=== PATIENT | male | born 1970 | race Hispanic/Latino ===

== ENCOUNTER 2024-09-01 12:10 | Emergency (ER) | payer OTHER ==
[~2024-09-01] VITALS: Ht 165.1 cm; Wt 54.4 kg
[2024-09-01 13:00] VITALS: PULSE 77; RESP 18; TEMP 98.5
[2024-09-01] MEDS ORDERED: DICYCLOMINE HCL 20 MG/2 ML VIAL IM ONE ×2 (13:15→17:02)
[2024-09-01 13:29] LABS: BASOPHILS % 0.2 % (0.0-1.0); HEMATOCRIT 36.9 % (38.2-49.6); HEMOGLOBIN 12.4 g/dL (14.0-18.0); LYMPHOCYTES # (AUTO) 0.5 (1.0-3.2); LYMPHOCYTES % 3.9 % (18.0-39.1); MEAN CORPUSCULAR HEMOGLOBIN 31.3 pg (28-32); MEAN CORPUSCULAR HGB CONC 33.6 g/dL (31-35); MEAN CORPUSCULAR VOLUME 93.2 fL (81-99); MONOCYTES # (AUTO) 0.4 (0.2-0.8); MONOCYTES % 2.7 % (4.4-11.3); NEUTROPHILS # (AUTO) 12.5 (2.1-6.9); NEUTROPHILS % 92.9 % (38.7-80.0); PLATELET COUNT 305 x10e3/uL (140-360); RED BLOOD COUNT 3.96 x10e6/uL (4.3-5.7); RED CELL DISTRIBUTION WIDTH 12.8 % (11.7-14.4); WHITE BLOOD COUNT 13.45 x10e3/uL (4.8-10.8)
[2024-09-01 13:46] LABS: INR 0.92; PARTIAL THROMBOPLASTIN TIME 26.4 seconds (23.8-35.5); PROTHROMBIN TIME 12.9 seconds (11.9-14.5)
[2024-09-01 13:59] LABS: ALBUMIN 4.5 g/dL (3.5-5.0); ALBUMIN/GLOBULIN RATIO 1.4 (0.8-2.0); ANION GAP 15.3 mmol/L (8-16); BILIRUBIN,TOTAL 0.4 mg/dL (0.2-1.2); CREATININE, SERUM 1.27 mg/dL (0.72-1.25); MAGNESIUM 2.1 MG/DL (1.3-2.1); POTASSIUM 4.3 mmol/L (3.5-5.1); TOTAL PROTEIN 7.8 g/dL (6.5-8.1)
[2024-09-01] MEDS ORDERED: IOPAMIDOL 370 MG/ML 100 ML INFUS..BTL INJ ONE (14:02)
[2024-09-01 14:05] LABS: TROPONIN I 0.003 ng/mL (0-0.300)
[2024-09-01 15:43] LABS: BILIRUBIN,URINE NEGATIVE (NEGATIVE); CLARITY,URINE CLEAR (CLEAR); COLOR,URINE STRAW (YELLOW); GLUCOSE, URINE NEGATIVE (NEGATIVE); KETONES,URINE 1+ (NEGATIVE); LEUKOCYTE ESTERASE ,URINE NEGATIVE (NEGATIVE); NITRITE,URINE NEGATIVE (NEGATIVE); PH,URINE 6.5 (5 - 7); PROTEIN,URINE DIPSTICK NEGATIVE (NEGATIVE); URINE UROBILINOGEN 0.2 mg/dL (0.2 - 1)
[2024-09-01 15:45] LABS: BACTERIA,URINE FEW /HPF; EPITHELIAL CELLS,URINE FEW /LPF; WBC,URINE (MAN) 0-5 /HPF (0-5)
[2024-09-01] MEDS ORDERED: ONDANSETRON HCL INJ 2MG/ML 2ML 2 MG/ML VIAL ONE (17:02)
[2024-09-01] MEDS ORDERED: SODIUM CHLORIDE 0.9% 1000ML 1,000 ML ONE (17:02)
[2024-09-01] MEDS ORDERED: KETOROLAC TROMETHAMINE 30 MG/ML VIAL ONE (17:07)
[2024-09-01] MEDS: ONDANSETRON HCL INJ 2MG/ML 2ML 2 MG/ML VIAL IV STA (17:12)
[2024-09-01] MEDS: SODIUM CHLORIDE 0.9% 1000ML 1,000 ML IV STA (17:12)
[2024-09-01] MEDS: KETOROLAC TROMETHAMINE 30 MG/ML VIAL IV STA (17:14)
[2024-09-01 18:22] VITALS: BP 125/76; PULSE 90; RESP 16; TEMP 98.7; O2SAT 100
[2024-09-01] MEDS ORDERED: ONDANSETRON ODT4 MG PO (18:22)
[2024-09-01] MEDS ORDERED: ULTRAM 50MG50 MG PO (18:22)
[2024-09-01] MEDS ORDERED: FLOMAX0.4 MG PO (18:22)
== END 2024-09-01 18:32 | disposition home or self-care (01) ==
LOC: ER 13:18
DX: R10.9 Unspecified abdominal pain (principal); N13.2 Hydronephrosis with renal and ureteral calculous obstruction; R11.2 Nausea with vomiting, unspecified; R19.7 Diarrhea, unspecified
CPT/HCPCS: 36415; 71045; 74177; 80053; 81001; 82550; 83690; 83735; 84484; 85025; 85610; 85730; 87086; 99284; J1885; J2405; J2470; J7030; Q9967